=== PATIENT | female | born 1980 | race Caucasian/White ===

== ENCOUNTER 2017-10-31 21:55 | Emergency (ER) | payer OTHER, SELFPAY ==
[2017-10-31] MEDS ORDERED: Ibuprofen 800 MG TAB ONE (22:29)
[2017-10-31] MEDS ORDERED: HYDROcodone/Acetaminophen 5/325 mg Tablet ONE (22:29)
[2017-10-31] MEDS ORDERED: Lidocaine 1% 20 ML MDV ONE (22:31)
--- NOTE | 2017-10-31 22:32 | RAD ---
LEFT FOOT THREE VIEWS: 10/31/17 HISTORY: Injury. COMPARISON: None. FINDINGS: There is a small chip fracture of the dorsal aspect of the distal phalanx of the great toe only seen on the lateral radiograph. Remainder of the foot appears to be intact. IMPRESSION: Small dorsal chip fracture of the tuft distal phalanx great toe. POS: [facility]
== END 2017-10-31 22:54 | disposition home or self-care (01) ==
LOC: MADERS 21:55
DX: S92.425A Nondisplaced fracture of distal phalanx of left great toe, initial encounter for closed fracture (principal); G43.909 Migraine, unspecified, not intractable, without status migrainosus; G89.29 Other chronic pain; W22.8XXA Striking against or struck by other objects, initial encounter
CPT/HCPCS: 64450; J2001

== ENCOUNTER 2023-03-28 16:01 | Emergency (ER) | payer SELFPAY ==
[2023-03-28] MEDS ORDERED: Lidocaine 1% w/Epinephrine 1:100K 20 ML VIAL ONE (17:08)
[2023-03-28] MEDS ORDERED: Lidocaine 1% (PF) 30 ML VIAL ONE (17:09)
== END 2023-03-28 19:50 | disposition home or self-care (01) ==
LOC: MADERS 16:01
DX: M54.50 Low back pain, unspecified (principal); G89.29 Other chronic pain; X50.0XXA Overexertion from strenuous movement or load, initial encounter; Y93.89 Activity, other specified
CPT/HCPCS: 20552; 72110; J2001